=== PATIENT | male | born 1965 | race African-American/Black ===

== ENCOUNTER 2017-04-03 09:16 | Emergency (ER) | payer MEDICARE ==
[~2017-04-03] VITALS: Ht 175.3 cm; Wt 100.0 kg
[~2017-04-03 09:16] MED LIST: APRESOLINE25 MG/TAB PO; BACTRIM DS1 TAB OR; CLOPIDOGREL75 MG PO; HUMULIN 70/30; HUMULIN 70/30 SC; HYDRALAZINE25 MG PO; INFANRIX IM; ISOSORB MONO30 MG PO; LANTUS100 MG/ML SC; LISINOPRIL10 MG PO; LOSARTAN/HCT1 TA2 PO; METFORMIN500 M2 OR; METOPROL TAR25 MG PO; NOVOLIN 70/30 SC; NOVOLOG MIX100 U/ML SC; PLAVIX75 MG PO; ROBITUSSIN AC10 ML OR; SIMVASTATIN40 MG PO; SPIRONOLACTONE25 MG PO; TAMSULOSIN0.4 MG PO; ULTRAM50 MG OR; ZPAK PO; [UNRECOGNIZED DRUG - OTHER] IV; [UNRECOGNIZED DRUG - REMARK]
[2017-04-03] MEDS ORDERED: MOTRIN400 MG PO (09:54)
[2017-04-03] MEDS ORDERED: FLEXERIL5 M1 PO (09:54)
[2017-04-03] MEDS ORDERED: ALDACTONE50 MG PO (09:56)
[2017-04-03] MEDS ORDERED: LASIX 40 MG TAB40 MG PO (09:56)
[2017-04-03 10:00] VITALS: BP 129/78
== END 2017-04-03 10:00 | disposition home or self-care (01) ==
LOC: ED 09:16
DX: M25.512 Pain in left shoulder (principal); E11.9 Type 2 diabetes mellitus without complications; I10 Essential (primary) hypertension; I25.2 Old myocardial infarction; Z95.5 Presence of coronary angioplasty implant and graft; Z79.4 Long term (current) use of insulin; W19.XXXA Unspecified fall, initial encounter

== ENCOUNTER 2017-04-06 08:24 | Emergency (ER) | payer MEDICARE ==
[~2017-04-06] VITALS: Ht 175.3 cm; Wt 95.5 kg
[~2017-04-06 08:24] MED LIST changes: +ALDACTONE50 MG PO; +FLEXERIL5 M1 PO; +LASIX 40 MG TAB40 MG PO; +MOTRIN400 MG PO
[2017-04-06 10:38] VITALS: BP 186/82
== END 2017-04-06 10:46 | disposition home or self-care (01) ==
LOC: ED 08:24
DX: R60.9 Edema, unspecified (principal); E11.9 Type 2 diabetes mellitus without complications; I10 Essential (primary) hypertension; I25.2 Old myocardial infarction; W10.9XXA Fall (on) (from) unspecified stairs and steps, initial encounter; Y92.009 Unspecified place in unspecified non-institutional (private) residence as the place of occurrence of the external cause; Z99.2 Dependence on renal dialysis; Z95.5 Presence of coronary angioplasty implant and graft

== ENCOUNTER 2017-09-05 10:15 | Emergency (ER) | payer MEDICARE, MEDICAID ==
[~2017-09-05] VITALS: Ht 152.4 cm; Wt 97.0 kg
[2017-09-05 13:44] LABS: HEMATOCRIT 30.1 % (39.0-50.0); HEMOGLOBIN 9.8 g/dl (14.0-18.0); IMMATURE GRANULOCYTES 0.4 % (0.0-1.0); MEAN CELL VOLUME 97.1 fL CALC (80.0-100.0); MEAN CORPUSCULAR HGB 31.6 pG CALC (26.0-32.0); MEAN CORPUSCULAR HGB CONC 32.6 g/L CALC (32.0-36.0); NEUT# 5.77 thou/uL (1.82-7.42); RED BLOOD COUNT 3.1 mill/uL (4.70-6.10); RED CELL DISTRI WIDTH 13.6 % (11.5-15.5)
[2017-09-05 13:52] LABS: ALBUMIN 4.4 g/dL (3.2-5.0); BILIRUBIN, TOTAL 0.8 mg/dL (0.0-1.4); POTASSIUM 4.1 mmol/l (3.5-5.1); TOTAL PROTEIN 7.8 g/dL (6.3-8.2)
[2017-09-05 13:58] LABS: CREATININE 6.3 mg/dL (0.7-1.3)
[2017-09-05] MEDS ORDERED: AMLODIPINE2.5 MG PO (15:40)
[2017-09-05] MEDS ORDERED: PHOSLO667 M1 PO (15:40)
[2017-09-05] MEDS ORDERED: CLONIDINE0.1 MG PO (15:41)
[2017-09-05 15:45] VITALS: BP 166/82
== END 2017-09-05 15:45 | disposition home or self-care (01) ==
LOC: ED 10:15
PROVIDERS: Emergency Medicine
DX: R53.1 Weakness (principal); N18.6 End stage renal disease; I12.0 Hypertensive chronic kidney disease with stage 5 chronic kidney disease or end stage renal disease; R22.43 Localized swelling, mass and lump, lower limb, bilateral; R94.31 Abnormal electrocardiogram [ECG] [EKG]; Z99.2 Dependence on renal dialysis

== ENCOUNTER 2017-10-18 06:54 | Day surgery (SDC) | payer SELFPAY ==
[~2017-10-18] VITALS: Ht 175.3 cm; Wt 93.0 kg
[~2017-10-18 06:54] MED LIST changes: +AMLODIPINE2.5 MG PO; +CLONIDINE0.1 MG PO; +PHOSLO667 M1 PO
[2017-10-18] MEDS ORDERED: HUMULIN R500 UNIT/1 (07:17)
[2017-10-18 09:30] VITALS: BP 165/63
== END 2017-10-18 09:45 | disposition home or self-care (01) | DRG 392 ==
LOC: ORM 06:54
PROVIDERS: ATTEND Surgery
PROC: 0DBK8ZX Excision of Ascending Colon, Via Natural or Artificial Opening Endoscopic, Diagnostic (ICD-10-PCS; principal; 2017-10-18)
PROC: 0DBN8ZX Excision of Sigmoid Colon, Via Natural or Artificial Opening Endoscopic, Diagnostic (ICD-10-PCS; 2017-10-18)
PROC: 0DB48ZX Excision of Esophagogastric Junction, Via Natural or Artificial Opening Endoscopic, Diagnostic (ICD-10-PCS; 2017-10-18)
PROC: 0DB78ZX Excision of Stomach, Pylorus, Via Natural or Artificial Opening Endoscopic, Diagnostic (ICD-10-PCS; 2017-10-18)
DX: K52.9 Noninfective gastroenteritis and colitis, unspecified (principal); R19.5 Other fecal abnormalities; K29.50 Unspecified chronic gastritis without bleeding; K31.89 Other diseases of stomach and duodenum; K20.9 Esophagitis, unspecified; K57.30 Diverticulosis of large intestine without perforation or abscess without bleeding; K64.1 Second degree hemorrhoids; I12.9 Hypertensive chronic kidney disease with stage 1 through stage 4 chronic kidney disease, or unspecified chronic kidney disease; E11.22 Type 2 diabetes mellitus with diabetic chronic kidney disease; N18.4 Chronic kidney disease, stage 4 (severe); I25.10 Atherosclerotic heart disease of native coronary artery without angina pectoris; Z95.5 Presence of coronary angioplasty implant and graft

== ENCOUNTER 2017-12-01 13:38 | Emergency (ER) | payer MEDICARE ==
[~2017-12-01] VITALS: Ht 175.3 cm; Wt 90.0 kg
[~2017-12-01 13:38] MED LIST changes: +HUMULIN R500 UNIT/1
[2017-12-01] MEDS ORDERED: MOTRIN400 MG PO (16:30)
[2017-12-01] MEDS ORDERED: ASPERCREME LIDOCA41 TOP (16:32)
[2017-12-01 16:50] VITALS: BP 138/68
== END 2017-12-01 16:50 | disposition home or self-care (01) ==
LOC: ED 13:38
DX: M25.562 Pain in left knee (principal); E11.22 Type 2 diabetes mellitus with diabetic chronic kidney disease; I12.9 Hypertensive chronic kidney disease with stage 1 through stage 4 chronic kidney disease, or unspecified chronic kidney disease; N18.9 Chronic kidney disease, unspecified; I25.2 Old myocardial infarction

== ENCOUNTER 2018-03-10 01:34 | Emergency (ER) | payer MEDICARE ==
[~2018-03-10] VITALS: Ht 175.3 cm; Wt 90.9 kg
[~2018-03-10 01:34] MED LIST changes: +ASPERCREME LIDOCA41 TOP
[2018-03-10 02:13] LABS: IMMATURE GRANULOCYTES 0.3 % (0.0-5.0); MEAN CELL VOLUME 95.8 fL CALC (80.0-100.0); MEAN CORPUSCULAR HGB 33.7 pG CALC (26.0-32.0); MEAN CORPUSCULAR HGB CONC 35.1 g/L CALC (32.0-36.0); NEUT# 12.37 thou/uL (1.82-7.42); RED BLOOD COUNT 4.04 mill/uL (4.70-6.10); RED CELL DISTRI WIDTH 14.3 % (11.5-15.5)
[2018-03-10 02:18] LABS: HEMATOCRIT 38.7 % (39.0-50.0); HEMOGLOBIN 13.6 g/dl (14.0-18.0)
[2018-03-10 02:26] LABS: ALBUMIN 4.8 g/dL (3.2-5.0); BILIRUBIN, TOTAL 1.3 mg/dL (0.0-1.4); TOTAL PROTEIN 8.8 g/dL (6.3-8.2)
[2018-03-10 02:33] LABS: POTASSIUM 5.5 mmol/l (3.5-5.1)
[2018-03-10 02:34] LABS: CREATININE 9.3 mg/dL (0.7-1.3)
[2018-03-10] MEDS ORDERED: ZOFRAN ODT4 MG PO (04:28)
[2018-03-10 04:45] VITALS: BP 188/94
== END 2018-03-10 04:45 | disposition left against medical advice (07) ==
LOC: ED 01:34
PROVIDERS: Emergency Medicine
DX: R10.30 Lower abdominal pain, unspecified (principal); R11.2 Nausea with vomiting, unspecified; K59.00 Constipation, unspecified; E11.65 Type 2 diabetes mellitus with hyperglycemia; E11.22 Type 2 diabetes mellitus with diabetic chronic kidney disease; I12.0 Hypertensive chronic kidney disease with stage 5 chronic kidney disease or end stage renal disease; N18.6 End stage renal disease; I25.2 Old myocardial infarction; Z99.2 Dependence on renal dialysis; Z91.15 Patient's noncompliance with renal dialysis; Z91.19 Patient's noncompliance with other medical treatment and regimen
CPT/HCPCS: S0164

== ENCOUNTER 2018-03-12 07:32 | Emergency (ER) | payer MEDICARE ==
[~2018-03-12] VITALS: Ht 175.3 cm; Wt 91.0 kg
[~2018-03-12 07:32] MED LIST changes: +ZOFRAN ODT4 MG PO
[2018-03-12 08:35] LABS: URINE BILIRUBIN - DIPSTICK NEGATIVE (NEGATIVE); URINE BLOOD DIPSTICK LARGE (NEGATIVE); URINE GLUCOSE - DIPSTICK >=1000 mg/dL (NEGATIVE); URINE KETONE NEGATIVE (NEGATIVE); URINE LEUK ESTERASE TRACE (NEGATIVE); URINE PH 7.5 (4.5-8.0); URINE PROTEIN - DIPSTICK >=300 mg/dL (NEG-TRACE); URINE SPECIFIC GRAVITY 1.015; URINE UROBILINOGEN - DIPSTICK 0.2 E.U./dL (0.2)
[2018-03-12 08:37] LABS: URINE CLARITY BLOODY; URINE COLOR RED; URINE NITRITE - DIPSTICK POSITIVE (Negative); URINE RBC TNTC RBC/hpf (0-5)
[2018-03-12 08:38] LABS: URINE BACTERIA FEW hpf
[2018-03-12 09:18] LABS: HEMATOCRIT 35.1 % (39.0-50.0); HEMOGLOBIN 11.9 g/dl (14.0-18.0); IMMATURE GRANULOCYTES 0.4 % (0.0-5.0); MEAN CELL VOLUME 98.6 fL CALC (80.0-100.0); MEAN CORPUSCULAR HGB 33.4 pG CALC (26.0-32.0); MEAN CORPUSCULAR HGB CONC 33.9 g/L CALC (32.0-36.0); NEUT# 6.84 thou/uL (1.82-7.42); RED BLOOD COUNT 3.56 mill/uL (4.70-6.10); RED CELL DISTRI WIDTH 14.5 % (11.5-15.5)
[2018-03-12 09:31] LABS: BILIRUBIN, TOTAL 0.9 mg/dL (0.0-1.4); POTASSIUM 4.7 mmol/l (3.5-5.1); PROTHROMBIN TIME 10.8 SECONDS (9.0-12.5)
[2018-03-12 09:33] LABS: ALBUMIN 3.8 g/dL (3.2-5.0); CREATININE 5.5 mg/dL (0.7-1.3); TOTAL PROTEIN 6.9 g/dL (6.3-8.2)
[2018-03-12] MEDS ORDERED: CIPROFLOXACN500 MG PO (10:08)
[2018-03-12 10:30] VITALS: BP 171/85
== END 2018-03-12 10:30 | disposition home or self-care (01) ==
LOC: ED 07:32
PROVIDERS: Emergency Medicine
DX: N39.0 Urinary tract infection, site not specified (principal); N20.0 Calculus of kidney; I10 Essential (primary) hypertension; E11.9 Type 2 diabetes mellitus without complications; I25.2 Old myocardial infarction

== ENCOUNTER 2018-05-05 09:38 | Emergency (ER) | payer MEDICARE ==
[~2018-05-05] VITALS: Ht 175.3 cm; Wt 86.4 kg
[~2018-05-05 09:38] MED LIST changes: +CIPROFLOXACN500 MG PO
[2018-05-05] MEDS ORDERED: BACTRIM DS1 TAB PO (10:16)
[2018-05-05 10:36] VITALS: BP 169/92
== END 2018-05-05 10:36 | disposition home or self-care (01) ==
LOC: ED 09:38
DX: H00.021 Hordeolum internum right upper eyelid (principal); I10 Essential (primary) hypertension; E11.9 Type 2 diabetes mellitus without complications; I25.2 Old myocardial infarction

== ENCOUNTER 2018-05-13 10:30 | Outpatient (RCR) | payer MEDICARE ==
[~2018-05-13] VITALS: Ht 175.3 cm; Wt 86.2 kg
[~2018-05-13 10:30] MED LIST changes: +BACTRIM DS1 TAB PO
--- NOTE | 2018-05-13 10:54 | NUR ---
Wound on Left foot 2nd digit is healed. No drainage is present. Wound left open to air. Left Hallux has small opening with only scant sero/sang drainage present. Wound cleaned with saline. Dry dressing applied. Instructed patient to change dressing daily. If no drainage by Wednesday call wound care and he will be discharged from [facility].
== END 2018-05-13 11:00 | disposition home or self-care (01) ==
LOC: OPWC 10:30
PROVIDERS: ATTEND Podiatrist Foot & Ankle Surgery
DX: L89.899 Pressure ulcer of other site, unspecified stage (principal); Z48.00 Encounter for change or removal of nonsurgical wound dressing
CPT/HCPCS: G0463

== ENCOUNTER 2018-08-13 08:28 | Observation (INO) | payer MEDICARE ==
[~2018-08-13] VITALS: Ht 172.7 cm; Wt 69.9 kg
[2018-08-13] VITALS (11 sets, daily range): BP systolic 118–187; BP diastolic 69–89
[2018-08-13] MEDS ORDERED: NOVOLIN 70/30 SC (09:05)
[2018-08-13] MEDS ORDERED: LIPITOR20 MG PO (09:09)
[2018-08-13] MEDS ORDERED: CALCIUM ACETAT667 M1 PO (09:16)
[2018-08-13 09:46] LABS: HEMATOCRIT 35.9 % (39.0-50.0); HEMOGLOBIN 12.1 g/dl (14.0-18.0); IMMATURE GRANULOCYTES 0.5 % (0.0-5.0); MEAN CELL VOLUME 99.2 fL CALC (80.0-100.0); MEAN CORPUSCULAR HGB 33.4 pG CALC (26.0-32.0); MEAN CORPUSCULAR HGB CONC 33.7 g/L CALC (32.0-36.0); NEUT# 6.33 thou/uL (1.82-7.42); RED BLOOD COUNT 3.62 mill/uL (4.70-6.10); RED CELL DISTRI WIDTH 12.5 % (11.5-15.5)
[2018-08-13 10:00] LABS: POTASSIUM 4.4 mmol/l (3.5-5.1)
[2018-08-13 10:03] LABS: CREATININE 5.7 mg/dL (0.7-1.3)
[2018-08-14 03:56] VITALS: BP 123/67
[2018-08-14 07:52] VITALS: BP 159/75
== END 2018-08-14 13:30 | disposition home or self-care (01) ==
LOC: ED 08:28 → ED-I 11:35 → ED 11:46 → MS2 11:47
PROVIDERS: Family Medicine; ADMIT Internal Medicine; ATTEND Internal Medicine
DX: I95.1 Orthostatic hypotension (principal); I12.0 Hypertensive chronic kidney disease with stage 5 chronic kidney disease or end stage renal disease; E11.22 Type 2 diabetes mellitus with diabetic chronic kidney disease; N18.6 End stage renal disease; E78.5 Hyperlipidemia, unspecified; I25.2 Old myocardial infarction; Z79.4 Long term (current) use of insulin; Z99.2 Dependence on renal dialysis; Z95.5 Presence of coronary angioplasty implant and graft

== ENCOUNTER 2019-01-12 14:40 | Emergency (ER) | payer MEDICARE ==
[~2019-01-12] VITALS: Ht 172.7 cm; Wt 88.0 kg
[~2019-01-12 14:40] MED LIST changes: +CALCIUM ACETAT667 M1 PO; +LIPITOR20 MG PO
[2019-01-12 15:22] LABS: BILIRUBIN, TOTAL 0.8 mg/dL (0.0-1.4); POTASSIUM 4.3 mmol/l (3.5-5.1); TOTAL PROTEIN 7.9 g/dL (6.3-8.2)
[2019-01-12 15:27] LABS: HEMATOCRIT 34.5 % (39.0-50.0); HEMOGLOBIN 11.8 g/dl (14.0-18.0); IMMATURE GRANULOCYTES 0.5 % (0.0-5.0); MEAN CELL VOLUME 96.4 fL CALC (80.0-100.0); MEAN CORPUSCULAR HGB CONC 34.2 g/L CALC (32.0-36.0); NEUT# 5.84 thou/uL (1.82-7.42); RED BLOOD COUNT 3.58 mill/uL (4.70-6.10); RED CELL DISTRI WIDTH 12.6 % (11.5-15.5)
[2019-01-12 15:35] LABS: ALBUMIN 4.7 g/dL (3.2-5.0); CREATININE 6.8 mg/dL (0.7-1.3)
[2019-01-12] MEDS ORDERED: PHENERGAN12.5 MG PO (16:29)
[2019-01-12 17:32] VITALS: BP 181/83
== END 2019-01-12 17:32 | disposition home or self-care (01) ==
LOC: ED 14:40
PROVIDERS: Family Medicine
DX: K52.9 Noninfective gastroenteritis and colitis, unspecified (principal); I10 Essential (primary) hypertension; E11.9 Type 2 diabetes mellitus without complications; I25.2 Old myocardial infarction

== ENCOUNTER 2019-01-12 21:17 | Emergency (ER) | payer MEDICARE ==
[~2019-01-12] VITALS: Ht 172.7 cm; Wt 90.0 kg
[~2019-01-12 21:17] MED LIST changes: +PHENERGAN12.5 MG PO
[2019-01-12 22:31] LABS: HEMATOCRIT 34.4 % (39.0-50.0); HEMOGLOBIN 11.9 g/dl (14.0-18.0); IMMATURE GRANULOCYTES 0.4 % (0.0-5.0); MEAN CELL VOLUME 94.5 fL CALC (80.0-100.0); MEAN CORPUSCULAR HGB 32.7 pG CALC (26.0-32.0); MEAN CORPUSCULAR HGB CONC 34.6 g/L CALC (32.0-36.0); NEUT# 12.15 thou/uL (1.82-7.42); RED BLOOD COUNT 3.64 mill/uL (4.70-6.10); RED CELL DISTRI WIDTH 12.6 % (11.5-15.5)
[2019-01-12 22:38] LABS: BILIRUBIN, TOTAL 0.8 mg/dL (0.0-1.4); POTASSIUM 4.3 mmol/l (3.5-5.1); TOTAL PROTEIN 8.5 g/dL (6.3-8.2)
[2019-01-12 22:41] LABS: CREATININE 8.3 mg/dL (0.7-1.3)
[2019-01-13 00:35] VITALS: BP 198/92
== END 2019-01-13 00:35 ==
LOC: ED 21:17
PROVIDERS: Emergency Medicine
DX: R11.2 Nausea with vomiting, unspecified (principal); E11.65 Type 2 diabetes mellitus with hyperglycemia; E11.22 Type 2 diabetes mellitus with diabetic chronic kidney disease; I12.0 Hypertensive chronic kidney disease with stage 5 chronic kidney disease or end stage renal disease; N18.6 End stage renal disease; I25.2 Old myocardial infarction; Z79.4 Long term (current) use of insulin

== ENCOUNTER 2019-06-09 08:18 | Emergency (ER) | payer MEDICARE ==
[~2019-06-09] VITALS: Ht 172.7 cm; Wt 105.0 kg
[2019-06-09 09:09] LABS: HEMATOCRIT 32.2 % (39.0-50.0); HEMOGLOBIN 10.6 g/dl (14.0-18.0); IMMATURE GRANULOCYTES 0.8 % (0.0-5.0); MEAN CELL VOLUME 98.5 fL CALC (80.0-100.0); MEAN CORPUSCULAR HGB 32.4 pG CALC (26.0-32.0); MEAN CORPUSCULAR HGB CONC 32.9 g/L CALC (32.0-36.0); NEUT# 9.51 thou/uL (1.82-7.42); RED BLOOD COUNT 3.27 mill/uL (4.70-6.10); RED CELL DISTRI WIDTH 14.9 % (11.5-15.5)
[2019-06-09 09:20] LABS: ALBUMIN 4.3 g/dL (3.2-5.0); BILIRUBIN, TOTAL 0.8 mg/dL (0.0-1.4); TOTAL PROTEIN 7.9 g/dL (6.3-8.2)
[2019-06-09 09:21] LABS: POTASSIUM 3.4 mmol/l (3.5-5.1)
[2019-06-09 09:24] LABS: PROTHROMBIN TIME 10.9 SECONDS (9.0-12.5)
[2019-06-09 10:05] VITALS: BP 185/97
--- NOTE | 2019-06-12 11:43 | NUR ---
Preliminary blood cultures shows gram positive cocci. Pt TRN to [facility]. Awaiting final culture to fax to [facility].
== END 2019-06-09 10:05 | disposition short-term general hospital (02) ==
LOC: ED 08:18
PROVIDERS: Family Medicine
PROC: 0BH17EZ Insertion of Endotracheal Airway into Trachea, Via Natural or Artificial Opening (ICD-10-PCS; principal; 2019-06-09)
PROC: 06HY33Z Insertion of Infusion Device into Lower Vein, Percutaneous Approach (ICD-10-PCS; 2019-06-09)
DX: I46.9 Cardiac arrest, cause unspecified (principal); I12.0 Hypertensive chronic kidney disease with stage 5 chronic kidney disease or end stage renal disease; E11.22 Type 2 diabetes mellitus with diabetic chronic kidney disease; N18.6 End stage renal disease; I25.2 Old myocardial infarction; Z99.2 Dependence on renal dialysis; Z79.4 Long term (current) use of insulin
CPT/HCPCS: J3475

== ENCOUNTER 2021-08-28 09:50 | Emergency (ER) | payer MEDICARE | END 2021-08-28 10:04 | disposition E | LOC: ED 09:50 | PROC: 5A12012 Performance of Cardiac Output, Single, Manual (ICD-10-PCS; principal; 2021-08-28) | DX: I46.9 Cardiac arrest, cause unspecified (principal); I12.0 Hypertensive chronic kidney disease with stage 5 chronic kidney disease or end stage renal disease; E11.22 Type 2 diabetes mellitus with diabetic chronic kidney disease; N18.6 End stage renal disease; I25.2 Old myocardial infarction; Z99.2 Dependence on renal dialysis ==